=== PATIENT | male | born 1990 | race Two or more races ===

== ENCOUNTER 2018-06-08 17:38 | Emergency (ER) | payer MEDICAID, OTHER ==
[~2018-06-08] VITALS: Ht 175.3 cm; Wt 72.6 kg
[2018-06-08 17:40] VITALS: BP 130/69
== END 2018-06-08 19:36 | disposition home or self-care (01) ==
LOC: ER 17:40
DX: J02.9 Acute pharyngitis, unspecified (principal); Z98.890 Other specified postprocedural states
CPT/HCPCS: 87070; 87880; 99284; A4606; A6403; Z7610; 86403-TC

== ENCOUNTER 2020-03-31 16:08 | Emergency (ER) | payer MEDICAID, OTHER ==
[~2020-03-31] VITALS: Ht 185.4 cm; Wt 80.7 kg
[2020-03-31 16:11] VITALS: BP 130/77
--- NOTE | 2020-03-31 16:55 | NUR ---
BIBS FROM HOME TO ER BED 6. AAOX4. NOT IN RESP DISTRESS. BREATHING EVEN AND UNLABORED. AMBULATORY ON STEADY GAIT. CAME IN FOR FEELING OF NUMBNESS ANF [place] WHEN EVEN HE FEELS HE IS HAVING A PALPITATION. HR IS NOTED WNL. PT APPEARS ANXIOUS. MD WAS AT BEDSIDE FOR EVAL. ORDERS RECEIVED NOTED AND CARRIED OUT. EMT AT BEDSIDE FOR EKG AND ACCU CHECK
--- NOTE | 2020-03-31 17:15 | NUR ---
Patient discharged to home in stable condition. Written and verbal after care instructions given. Patient verbalizes understanding of instruction.
== END 2020-03-31 17:16 | disposition home or self-care (01) ==
LOC: ER 16:18
DX: F41.1 Generalized anxiety disorder (principal); R06.4 Hyperventilation; R20.2 Paresthesia of skin; R00.2 Palpitations; Z98.890 Other specified postprocedural states
CPT/HCPCS: 82962-TC

== ENCOUNTER 2020-06-07 21:04 | Emergency (ER) | payer MEDICAID ==
--- NOTE | 2020-06-07 21:16 | NUR ---
CALLED PT IN [facility] X[facility]. NO ONE RESPONDED. PER ADMITTING PT STEPPED OUTSIDE. WILL FOLLOW UP.
--- NOTE | 2020-06-07 21:27 | NUR ---
2ND ATTEMPT. CALLED PT IN [facility]. NO ONE RESPONDED. WILL FOLLOW UP.
--- NOTE | 2020-06-07 21:43 | NUR ---
3RD ATTEMPT, CALLED PT IN [facility] X[facility]. NO ONE RESPONDED, PER ADMITTING PT NEVER RETURNED.
== END 2020-06-07 21:44 | disposition left against medical advice (07) ==
LOC: ER 21:06
DX: Z53.21 Procedure and treatment not carried out due to patient leaving prior to being seen by health care provider (principal)

== ENCOUNTER 2022-02-24 17:07 | Emergency (ER) | payer MEDICAID ==
[~2022-02-24] VITALS: Ht 185.4 cm; Wt 98.4 kg
[2022-02-24 17:11] VITALS: BP 122/83
[2022-02-24] MEDS ORDERED: HYDR-3972 PO (18:07)
== END 2022-02-24 18:12 | disposition home or self-care (01) ==
LOC: ER 17:19
DX: K08.89 Other specified disorders of teeth and supporting structures (principal); K05.6 Periodontal disease, unspecified; F41.9 Anxiety disorder, unspecified